=== PATIENT | male | born 1955 ===

== ENCOUNTER → 2019-05-14 06:00 | Outpatient (CLI) | payer OTHER ==
[~2019-05-14 06:00] MED LIST: GABAPENTIN PO; HUMOLOG SUBCUTANEO; LANTUS SUBCUTANEO; LISINOPRIL PO
== END | disposition home or self-care (01) ==
LOC: LAB 06:00 → ADM 05-23 09:30 → EDSTATUS 05-28 09:30 → CIR.AMB 05-28 09:30
DX: G56.01 Carpal tunnel syndrome, right upper limb (principal); I10 Essential (primary) hypertension; E11.9 Type 2 diabetes mellitus without complications; E78.00 Pure hypercholesterolemia, unspecified; E78.3 Hyperchylomicronemia; D66 Hereditary factor VIII deficiency; D65 Disseminated intravascular coagulation [defibrination syndrome]; N39.0 Urinary tract infection, site not specified; Z01.810 Encounter for preprocedural cardiovascular examination